=== PATIENT | female | born 1970 | race Caucasian/White ===

== ENCOUNTER 2022-11-17 16:20 | Emergency (ER) | payer OTHER ==
[2022-11-17 16:53] VITALS: BP 112/76; PULSE 84; RESP 20; TEMP 98.6; BMI 28.3
[2022-11-17] MEDS ORDERED: DEXAMETHASONE SOD PHOSPHATE 10 MG/1 ML VIAL IM ONE (17:28)
[2022-11-17] MEDS ORDERED: IBUPROFEN 600 MG TABLET (FP) PO ONE ×2 (17:29→17:44)
[2022-11-17] MEDS ORDERED: DEXAMETHASONE SOD PHOSPHATE 10 MG/1 ML VIAL ONE (17:45)
[2022-11-17 18:08] LABS: THROAT:GRP A STREP NOT DETECTED (NOTDETECTED)
== END 2022-11-17 19:05 | disposition home or self-care (01) ==
LOC: JER 16:20
DX: B34.9 Viral infection, unspecified (principal)
CPT/HCPCS: 0241U-QW; 87651; 99283-25